=== PATIENT | female | born 1955 | race Two or more races ===

== ENCOUNTER 2020-10-20 | Outpatient (CLI) | payer OTHER | END 2020-10-20 10:00 | disposition home or self-care (01) | LOC: PPH VACUNA | PROVIDERS: ATTEND Emergency Medicine Pediatric Emergency Medicine | DX: Z23 Encounter for immunization (principal) ==

== ENCOUNTER 2020-11-10 | Outpatient (CLI) | payer OTHER | END 2020-11-10 10:01 | disposition home or self-care (01) | LOC: PPH VACUNA | PROVIDERS: ATTEND Emergency Medicine Pediatric Emergency Medicine | DX: Z23 Encounter for immunization (principal) ==